=== PATIENT | male | born 1985 | race African-American/Black ===

== ENCOUNTER 2023-04-13 08:52 | Emergency (ER) | payer SELFPAY ==
[~2023-04-13] VITALS: Ht 170.2 cm; Wt 90.0 kg
[2023-04-13 08:57] VITALS: BP 135/82; PULSE 99; RESP 20; TEMP 97.9; O2SAT 98
[2023-04-13] MEDS ORDERED: LIDOCAINE HCL/PF 1% 10 MG/ML 5ML VIAL INFIL ONE (10:00)
[2023-04-13] MEDS ORDERED: TETANUS, DIPHTHERIA, PERTUSSIS VAC/PF 0.5ML (>10YR OLD) IM ONE (10:00)
== END 2023-04-13 11:52 | disposition home or self-care (01) ==
LOC: ER 08:52
DX: S01.511A Laceration without foreign body of lip, initial encounter (principal); X58.XXXA Exposure to other specified factors, initial encounter; Y93.89 Activity, other specified; Y92.89 Other specified places as the place of occurrence of the external cause; Y99.8 Other external cause status
CPT/HCPCS: 99283; 90715; 12011; 90471; J3490